=== PATIENT | female | born 2000 | race Caucasian/White ===

== ENCOUNTER 2022-03-19 20:39 | Outpatient (CLI) | payer BC, OTHER ==
[~2022-03-19] VITALS: Ht 167.6 cm; Wt 81.8 kg
--- NOTE | 2022-03-19 20:45 | NUR ---
PT TO UNIT AMBULATORY WITH SPOUSE WITH CONCERNS OF BACK PAIN AND POSSIBLE SROM. PT STATES THAT HER BACK PAIN STARTED APPROXIMATELY 2 HOURS AGO, WAS MORE INTENSE WHILE DRIVING TO THE HOSPITAL BUT NOW IS JUST "ANNOYING". ALSO STATES THAT SHE HAS BEEN LEAKING FLUID, "NOT ENOUGHT TO SOAK A PAD" BUT JUST "CLEAR FLUID THAT SOAKS HER UNDERWEAR." ANMIOSWAB NEGATIVE ON ARRIVAL, NO LOF VISUALIZED, DRY EXAM, SVE OF 2/70/-2 WHICH IS UNCHANGED FROM OFFICE VISIT APPROXIMATELY 1 WEEK AGO. EFM X2 APPLIED, VS OBTAINED. WILL RECHECK SVE IN AN HOUR.
[2022-03-19 21:30] VITALS: BP 123/71; PULSE 95; TEMP 98.1
--- NOTE | 2022-03-19 22:25 | NUR ---
2215- MONITORING DC'D AT THIS TIME. DR. OVERTON OK'D PT TO DC HOME AT THIS TIME. 2225- DISCHARGE INSTRUCTIONS REVIEWED WITH PT AND SPOUSE, QUESTIONS ENCOURAGED AND ANSWERED, UNDERSTANDING VERBALIZED. PT OFF THE UNIT AMBULATORY WITH SPOUSE FOR HOME.
== END 2022-03-19 22:25 | disposition home or self-care (01) ==
LOC: LDRO 20:39
DX: O26.893 Other specified pregnancy related conditions, third trimester (principal); Z3A.37 37 weeks gestation of pregnancy

== ENCOUNTER 2022-03-28 20:22 | Outpatient (CLI) | payer BC, OTHER ==
[~2022-03-28] VITALS: Ht 167.6 cm; Wt 80.5 kg
--- NOTE | 2022-03-28 20:23 | NUR ---
Ambulatory to unit for labor assessment, accompanied by spouse. Oriented to room, monitor, plan of care. Pt reports "I was at my OB's office yesterday. Dr Reed checked me. It was the most painful check I've had. I've been fredo ever since."
[2022-03-28 20:45] VITALS: BP 110/67; PULSE 96; TEMP 98.7
--- NOTE | 2022-03-28 21:45 | NUR ---
SVE unchanged from admission exam. Discussed with pt and spouse.
--- NOTE | 2022-03-28 22:05 | NUR ---
Discharge instructions reviewed with pt and spouse. Questions invited and answered. Ambulatory off unit.
[2022-03-29] MEDS ORDERED: MOTRIN 800800 MG/TAB PO (08:53)
== END 2022-03-28 22:05 | disposition home or self-care (01) ==
LOC: LDRO 20:22 → LDR 21:23 → LDRO 22:05
DX: O26.893 Other specified pregnancy related conditions, third trimester (principal); E75.5 Other lipid storage disorders; Z3A.39 39 weeks gestation of pregnancy
CPT/HCPCS: OP

== ENCOUNTER 2022-03-28 23:04 | Inpatient (IN) | payer BC, OTHER ==
[~2022-03-28] VITALS: Ht 167.6 cm; Wt 80.5 kg
--- NOTE | 2022-03-28 23:10 | NUR ---
G1L0. 39.0. Pt wheeled to LDR 6 with significant other. Pt states she was on her way home when her water broke. Reports SROM at 2245, clear fluids. Reports good movement. States contractions are now 3 mins apart and feel stronger then before. EFM and TOCO explained and applied. SVE 4-5/90/-2 with fluid gush. Plan of care explained. Pt reports wanting an epidural. 2325: called and updated on plan of care. [id number]: Pt sitting on edge of bed due to pain. Difficulty tracing FHR and tracing maternal heart rate due to maternal position. RN adjusts monitor for FHR of 135bpm. 2341: IV started and labs obtained via IV site. LR bolus infusing. [facility] PHYSIC[facility] DIRECTOR notified for epidural placement. [id number]: Pt sitting back on edge of bed. Difficulty tracing FHR and tracing maternal heart rate due to position. Monitors adjusted 2357: Report given to Sallie HARVEY.
[2022-03-29] VITALS (12 sets, daily range): BP systolic 98–119; BP diastolic 52–73; PULSE 69–110; TEMP 98–98.6
[2022-03-29 00:11] LABS: HEMOGLOBIN 12.7 g/dl (12.0-15.0); MEAN CELL VOLUME 92 fl (80.0-95.0); MEAN CORPUSCULAR HEMOGLOBIN 32 pg (26-32); MEAN CORPUSCULAR HGB CONC 34 g/dl (33.0-37.0); MEAN PLATELET VOLUME 11.9 fl (7.4-10.4); PLATELET COUNT 282 K/mm3 (130-400); RED BLOOD COUNT 4.01 M/mm3 (4.10-5.30); REDCELL DISTRIBUTION WIDTH-CV 12.3 % (11.5-14.5)
[2022-03-29 00:15] LABS: HEMATOCRIT 36.9 % (35.0-45.0)
[2022-03-29 00:31] LABS: BAND 2 % (0-10); LYMPHOCYTE 10 % (20.0-51.0); NEUTROPHILS 82 % (42.0-75.2)
[2022-03-29 00:32] LABS: PLATELET ESTIMATE NORMAL (NORMAL)
[2022-03-29] MEDS ORDERED: MOTRIN 800800 MG/TAB PO (08:53)
--- NOTE | 2022-03-29 16:45 | NUR ---
Rests in bed, alert, baby. Tylenol 1000 mg given as ordered and per request.
--- NOTE | 2022-03-29 20:59 | NUR ---
PT AMB TO BR TO VOID 350 CC. PERICARE TAUGHT, PADS AND GOWN CHANGED. PT AMB TO PP ROOM 207 WITH BABY AND PT'S . PT IS UP AMB WELL. DENIES DIZZINESS OR WEAKNESS.
[2022-03-30 07:30] VITALS: BP 103/51; PULSE 55; TEMP 98.1
--- NOTE | 2022-03-30 09:26 | NUR ---
Initial visit; Patient thanked [employer] [facility] for offering congratulations and God's blessings for the of their daughter. [employer] [facility] thanked family for choosing [facility].
--- NOTE | 2022-03-30 15:00 | NUR ---
1500-Reviwed discharge instructions with patient. Patient verbalized understanding. Updated on need to follow up at six week visit. 1515-Ambulatory off unit with mother and .
== END 2022-03-30 15:15 | disposition home or self-care (01) | DRG 807 ==
LOC: LDRO 23:04 → LDR 23:05 → LDRO 23:29 → OB 23:29
PROVIDERS: Obstetrics & Gynecology; ADMIT Obstetrics & Gynecology
PROC: 10E0XZZ Delivery of Products of Conception, External Approach (ICD-10-PCS; principal; 2022-03-29)
PROC: 0KQM0ZZ Repair Perineum Muscle, Open Approach (ICD-10-PCS; 2022-03-29)
DX: O99.344 Other mental disorders complicating childbirth (principal); Z37.0 Single live birth; Z3A.39 39 weeks gestation of pregnancy; F41.8 Other specified anxiety disorders; O70.1 Second degree perineal laceration during delivery; Z23 Encounter for immunization
CPT/HCPCS: J7120